=== PATIENT | female | born 1970 | race Asian ===

== ENCOUNTER 2017-02-17 21:56 | Emergency (ER) | payer BC ==
[~2017-02-17] VITALS: Ht 152.4 cm; Wt 49.9 kg
[2017-02-17 22:06] VITALS: BP_SYST 119
[2017-02-18] MEDS ORDERED: DIPHENHYDRAMINE HCL 25 MG CAPSULE PO ONE
[2017-02-18 00:20] VITALS: BP_SYST 115
== END 2017-02-18 00:20 | disposition home or self-care (01) ==
LOC: SED 21:56
DX: E78.00 Pure hypercholesterolemia, unspecified (principal); S80.12XA Contusion of left lower leg, initial encounter; X58.XXXA Exposure to other specified factors, initial encounter; Y93.89 Activity, other specified; Y92.89 Other specified places as the place of occurrence of the external cause; Y99.8 Other external cause status
CPT/HCPCS: 99282; Q0163